=== PATIENT | male | born 1985 | race African-American/Black ===

== ENCOUNTER 2024-10-02 16:01 | Emergency (ER) | payer SELFPAY ==
[~2024-10-02] VITALS: Ht 175.3 cm; Wt 117.9 kg
[2024-10-02 16:22] VITALS: BP 152/72; TEMP 98; O2SAT 99
[2024-10-02] MEDS ORDERED: AMOX-430 PO (16:33)
== END 2024-10-02 16:59 | disposition home or self-care (01) ==
LOC: ER 16:08
DX: K04.7 Periapical abscess without sinus (principal)

== ENCOUNTER 2024-10-21 18:20 | Emergency (ER) | payer OTHER ==
[~2024-10-21] VITALS: Ht 175.3 cm; Wt 90.7 kg
[~2024-10-21 18:20] MED LIST: AMOX-430 PO
[2024-10-21 19:02] VITALS: BP 112/50; TEMP 98.3
[2024-10-21 22:17] VITALS: O2SAT 99
== END 2024-10-21 22:18 | disposition home or self-care (01) ==
LOC: ER 18:31
DX: M25.572 Pain in left ankle and joints of left foot (principal); M54.2 Cervicalgia; M25.512 Pain in left shoulder; V29.99XA Rider (driver) (passenger) of other motorcycle injured in unspecified traffic accident, initial encounter; Z79.899 Other long term (current) drug therapy; Y93.89 Activity, other specified; Y92.488 Other paved roadways as the place of occurrence of the external cause; Y99.8 Other external cause status
CPT/HCPCS: 72040-TC; 73030-TC; 73610-TC